=== PATIENT | female | born 1960 | race Caucasian/White ===

== ENCOUNTER 2016-12-11 22:00 | Emergency (ER) | payer MEDICAID ==
[2016-12-11] MEDS ORDERED: CHLORDIAZEPOXIDE 25MG PREPK#6 BTL TAKEHOME ONE (22:15)
--- NOTE | 2016-12-11 22:18 | EDPHY ---
H & P Stated Complaint: AT [facility], SENT TO ER FOR EVAL OF HEADACHE, HAD 'BRAIN HEMATOMA' IN OCTOBER Time Seen by Provider: 12/11/16 22:04 HPI/ROS: Chief Complaint: Headache, intoxication, recent craniotomy HPI: 56-year-old woman past medical history of chronic alcoholism who is status post right-sided craniotomy for subdural hematoma in October at [facility]. Patient was found walking intoxicated this evening was taken to the [facility]. She was sent here for medical clearance. She is complaining of a 3/10 dull right-sided headache over her surgery site. Patient states that she feels a little more unsteady on her feet tonight and just "does not feel right". No nausea or vomiting. Denies any recent falls or injuries. No vision or hearing changes. No numbness or tingling. No fevers or chills. ROS: 10 point Review of Systems is negative except as noted in the HPI. PMH: Subdural hematoma status post craniotomy 2 months ago, alcoholism, bipolar disorder Social History: Positive smoking, positive heavy alcohol, no recreational drug use Family History: non-contributory Physical Exam: Gen: Awake, Alert, smells of alcohol HEENT: Head: She has a healing right craniotomy scar no erythema, no dehiscence, no tenderness or fluctuance Nose: no rhinorrhea Eyes: PERRLA, EOMI Mouth: Moist mucosa Neck: Supple, no JVD Chest: nontender, lungs clear to auscultation Heart: S1, S2 normal, no murmur Abd: Soft, non-tender, no guarding Back: no CVA tenderness, no midline tenderness Ext: no edema, non-tender Skin: no rash Neuro: CN II-XII intact, Sensation grossly intact, Strength 5/5 in bilateral upper and lower extremities - Personal History Current Tetanus/Diphtheria Vaccine: Unsure - Medical/Surgical History Hx Asthma: No Hx Chronic Respiratory Disease: No Hx Diabetes: No Hx Cardiac Disease: No Hx Renal Disease: No Hx Cirrhosis: No Hx Alcoholism: No Hx HIV/AIDS: No Hx Splenectomy or Spleen Trauma: No Other PMH: BRAIN BLEED 10/2016, ETOH, HEART MURMUR, BIPOLAR - Social History Smoking Status: Never smoked Constitutional: Initial Vital Signs Temperature (C) 36.6 C 12/11/16 22:00 Heart Rate 84 12/11/16 22:00 Respiratory Rate 18 12/11/16 22:00 Blood Pressure 133/85 H 12/11/16 22:00 O2 Sat (%) 95 12/11/16 22:00 O2 Delivery Mode Room Air Allergies/Adverse Reactions: Penicillins Allergy (Verified 12/11/16 22:10) Home Medications: Medication Instructions Recorded Seroquel 12/11/16 traZODone 12/11/16 Medical Decision Making - Diagnostics Imaging Results: CT scan of the head shows a normal bone flap in place. No evidence of any intracranial bladder fluid collection. Essentially a unremarkable CT scan of the brain as interpreted by Dr. Valente. ED Course/Re-evaluation: CT scan of the head is negative. Patient is otherwise well-appearing. She is medically cleared to return to the [facility]. Departure - Departure Disposition: Home, Routine, Self-Care Clinical Impression: Alcohol intoxication Condition: Good Instructions: Alcohol Intoxication (ED), Chlordiazepoxide (By mouth) Additional Instructions: Please seek help to decrease your alcohol consumption. Referrals: Patient,NotPresent [Unknown] - As per Instructions
[2016-12-11 23:00] VITALS: BP 129/79; PULSE 95; RESP 20; TEMP 98.2; O2SAT 96
== END 2016-12-11 23:15 | disposition home or self-care (01) ==
LOC: EDUNIT#
DX: F10.129 Alcohol abuse with intoxication, unspecified (principal); F17.200 Nicotine dependence, unspecified, uncomplicated